=== PATIENT | female | born 1985 | race Caucasian/White ===

== ENCOUNTER 2017-12-14 12:52 | Observation (INO) | payer OTHER ==
[~2017-12-14] VITALS: Ht 165.1 cm; Wt 98.3 kg
[2017-12-14 13:12] LABS: BASOPHIL (%) 0.2 % (0-1); EOSINOPHIL COUNT 0.1 K/uL (0-0.3); HEMATOCRIT 44.6 % (36.0-46.0); HEMOGLOBIN 14.7 G/DL (11.9-15.5); IMMATURE GRANULOCYTE (%) 0.5 % (0.0-0.7); LYMPHOCYTE (%) 19.1 % (15-42); LYMPHOCYTE COUNT 1.6 K/uL (1.0-2.8); MCH 29.5 PG (29.0-34.0); MCV 89.6 FL (83-99); MONOCYTE (%) 7.5 % (3-12); MONOCYTE COUNT 0.6 K/uL (0-0.8); NEUTROPHIL (%) 71.7 % (45-76); PLATELET COUNT 265 K/uL (156-360); RBC DIS.WIDTH-SD 42.6 % (39-53); RED BLOOD COUNT 4.98 M/uL (3.80-5.20); WHITE BLOOD COUNT 8.4 K/uL (4.1-10.2)
[2017-12-14 13:21] LABS: AMYLASE 74 IU/L (1-118); CHLORIDE 108 mEq/L (99-109); SODIUM 139 mEq/L (136-147)
[2017-12-14 13:23] LABS: GLUCOSE 107 mg/dL (70-99)
[2017-12-14 13:26] LABS: SERUM ETHYL ALCOHOL < 10 mg/dL
[2017-12-14 13:27] LABS: CREATININE 0.8 mg/dL (0.6-1.3)
[2017-12-14 13:28] LABS: UREA NITROGEN (BUN) 16 mg/dL (9-23)
[2017-12-14 13:29] LABS: GFR ESTIMATE (CALCULATED) > 59 mL/min/
[2017-12-14 13:30] LABS: LIPASE 58 U/L (1.0-51.0)
[2017-12-14 13:36] LABS: QUANTITATIVE HCG < 4.0 MIU/ML
[2017-12-14] MEDS ORDERED: OXYBUTYNIN CHLO10 MG PO (15:05)
[2017-12-14] MEDS ORDERED: CELEXA10 MG PO (15:05)
[2017-12-14 15:13] LABS: APPEARANCE CLEAR ((CLEAR)); BILIRUBIN NEGATIVE; BLOOD MODERATE; COLOR YELLOW ((YELLOW)); GLUCOSE (STRIP) 50; KETONES NEGATIVE; LEUKOCYTES NEGATIVE; NITRITE NEGATIVE; PROTEIN (STRIP) 100; SPECIFIC GRAVITY 1.043 (1.000-1.030); UROBILINOGEN 0.2 MG/DL (0.2-1.0)
[2017-12-14 15:18] LABS: AMPHETAMINE NEGATIVE (500 ng/mL); BARBITURATES NEGATIVE (200 ng/mL); BENZODIAZEPINES NEGATIVE (150 ng/mL); BUPRENORPHINE NEGATIVE (10 ng/mL); COCAINE NEGATIVE (150 ng/mL); METHADONE NEGATIVE (200 ng/mL); METHAMPHETAMINE NEGATIVE (500 ng/mL); OPIATES (MORPHINE) NEGATIVE (100 ng/mL); OXYCODONE NEGATIVE (100 ng/mL); PHENCYCLIDINE NEGATIVE (25 ng/mL); PROPOXYPHENE NEGATIVE (300 ng/mL); THC CANNABINOIDS NEGATIVE (50 ng/mL); TRICYCLIC ANTIDEPRESSANTS NEGATIVE (300 ng/mL)
[2017-12-14 15:29] LABS: BACTERIA RARE /HPF; EPITHELIAL CELLS RARE /HPF; MUCUS TRACE /LPF; RED BLOOD CELLS 15-20 /HPF (0-5); UCUL ADDED? YES
[2017-12-14 16:15] VITALS: BP 119/70
[2017-12-14 20:39] VITALS: BP 120/77
[2017-12-15 00:13] VITALS: BP 116/51
[2017-12-15 03:56] VITALS: BP 98/54
[2017-12-15 05:12] LABS: HEMATOCRIT 41.2 % (36.0-46.0); HEMOGLOBIN 13.7 G/DL (11.9-15.5); MCH 29.4 PG (29.0-34.0); MCHC 33.3 G/DL (30.0-36.0); MCV 88.4 FL (83-99); PLATELET COUNT 289 K/uL (156-360); RBC DIS.WIDTH-CV 13.1 % (11.8-14.6); RBC DIS.WIDTH-SD 42.4 % (39-53); RED BLOOD COUNT 4.66 M/uL (3.80-5.20); WHITE BLOOD COUNT 9.3 K/uL (4.1-10.2)
[2017-12-15 05:46] LABS: ALBUMIN 3.9 G/DL (3.2-4.8); ALKALINE PHOSPHATASE 62 IU/L (3-129); ALT (GPT) 54 IU/L (3-49); AST (GOT) 35 IU/L (2-34); CHLORIDE 107 MEQ/L (99-109); CREATININE 0.8 MG/DL (0.6-1.3); GFR ESTIMATE (CALCULATED) > 59 mL/min/; GLUCOSE 91 mg/dL (70-99); POTASSIUM 3.7 MEQ/L (3.7-5.4); SODIUM 139 MEQ/L (136-147); TOTAL BILIRUBIN 0.7 MG/DL (0.0-1.0); TOTAL PROTEIN 6.9 G/DL (6.4-8.3); UREA NITROGEN (BUN) 16 mg/dL (9-23)
[2017-12-15 08:06] VITALS: BP 109/56
[2017-12-15] MEDS ORDERED: IBUPROFEN400 MG PO (11:33)
[2017-12-15] MEDS ORDERED: CITALOPRAM HBR20 MG PO (11:33)
[2017-12-15] MEDS ORDERED: PRAZOSIN HCL1 MG PO (11:33)
[2017-12-15 12:06] VITALS: BP 121/72
[2017-12-16] MEDS ORDERED: OXYBUTYNIN CHLO10 MG PO (20:37)
[2017-12-16] MEDS ORDERED: FLUTICASONE P15.8 ML BOTH NARES (20:38)
[2017-12-16] MEDS ORDERED: MULTI-VITAMIN1 EAC3 PO (20:39)
[2017-12-16] MEDS ORDERED: CLARITIN,ALAVAR10 MG PO (20:40)
[2017-12-16] MEDS ORDERED: MIRENA1 EACH IY (20:40)
[2017-12-16] MEDS ORDERED: CELEXA20 MG PO (20:42)
== END 2017-12-15 15:30 | disposition home or self-care (01) ==
LOC: TRA 12:52 → EDOF 15:13 → 3EAST 15:13 → EDOF 15:13 → ENRESERV 15:17 → 3EAST 16:10
PROVIDERS: Emergency Medicine; Surgery
DX: J93.9 Pneumothorax, unspecified (principal); M54.9 Dorsalgia, unspecified; M25.552 Pain in left hip; R07.9 Chest pain, unspecified; M25.511 Pain in right shoulder; M25.562 Pain in left knee; M54.2 Cervicalgia; R45.851 Suicidal ideations; F33.9 Major depressive disorder, recurrent, unspecified; F43.12 Post-traumatic stress disorder, chronic; N32.81 Overactive bladder; F98.8 Other specified behavioral and emotional disorders with onset usually occurring in childhood and adolescence; Z87.891 Personal history of nicotine dependence; V43.52XA Car driver injured in collision with other type car in traffic accident, initial encounter; Y92.410 Unspecified street and highway as the place of occurrence of the external cause
CPT/HCPCS: 70450; 71045; 71046; 71260; 72125; 72129; 72132; 73030; 73502; 74177; 80048; 80053; 81003; 82150; 83690; 84702; 85025; 85027; 86850; 86900; 86901; 87086; 99281; 99285; G0378; G0480; J2270